=== PATIENT | male | born 1985 | race Caucasian/White ===

== ENCOUNTER 2018-04-17 03:13 | Observation (INO) | payer BC, OTHER ==
[2018-04-17] MEDS ORDERED: Famotidine 20 MG/2 ML SDV IVPUSH ONE (03:34)
--- NOTE | 2018-04-17 03:34 | EDM.PDOC ---
ED HPI GENERAL MEDICAL PROBLEM - General Chief Complaint: General Stated Complaint: dizzyness,faint Time Seen by Provider: 04/17/18 03:30 Source of Information: Reports: Patient, Old Records ([facility] EMR. No paper hospital chart available.) History Limitations: Reports: No Limitations - History of Present Illness INITIAL COMMENTS - FREE TEXT/NARRATIVE: The patient was brought to the emergency room via transport vehicle from [facility] for evaluation of multiple neurological complaints. Note that the patient is a poor historian secondary to his current confusion and mental status. 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 He only performed about a third of his normal workout since beginning the shift this evening. He apparently last appeared normal at time of his break at about 01:00 hours this morning. An EMT, which works in their facility, was called to evaluate the patient had about 02:30 a.m. with normal vital signs at that time, including a blood pressure 133/79 pulse 64 and O2 sat of 96% on room air. Accu-Chek taken by the EMT was normal at 104 milligram percent. The patient at that time complained of diffuse paresthesias without hyperventilation with additional nausea and dizziness, which apparently started at about 01:00 hours, with additional possible mild slurred speech by his brineyard supervisor's history. No history of recent headaches, visual changes, diplopia, or other change in neurological status. The patient denies any chest pain/ pressure, heart flutter, orthostasis, orthopnea, diaphoresis, paresthesias, recent decreased exercise tolerance, or any other anginal-type symptoms. Patient apparently did have some possible food poisoning about 2 weeks ago. No recent history of heartburn, emesis, diarrhea, melena, gross hematochezia, or any food intolerance, including fatty foods, etc., although he has had some nonspecific abdominal cramping this evening feeling that he needs to have a bowel movement. He denies any gross hematuria, colic, or other UTI symptoms. The patient also denies any recent fever, cough, wheezing, dyspnea, etc.. Shortly after arrival to the emergency room the patient did complain of a 4/10 bilateral frontal headache with some progressive nausea but no emesis. He did run out of his Zoloft about 3 days ago, however has been taking his Wellbutrin. He denies any illicit drug use with last alcohol use of 3 beers at 3 AM on 04/16. Onset: Today, Unknown/Unsure Onset Date: 04/17/18 Onset Time: 01:00 Duration: Constant Location: Reports: Head. Denies: Face, Neck, Chest, Abdomen, Back, Upper Extremity, Left, Upper Extremity, Right, Radiates to Quality: Reports: Same as Previous Episode, Throbbing Severity: Mild Improves with: Reports: None Worsens with: Reports: None Context: Reports: Other (As above) Associated Symptoms: Reports: Confusion, Headaches, Malaise, Nausea/Vomiting. Denies: Chest Pain, Cough, Diaphoresis, Fever/Chills, Loss of Appetite, Seizure , Shortness of Breath, Syncope, Weakness Treatments FRINGE WEAVER: Reports: Other (see below) (None) headache Pain Score (Numeric/FACES): 4 - Related Data Allergies Allergy/AdvReac Type Severity Reaction Status Date / Time No Known Allergies Allergy Verified 04/17/18 03:19 Home Meds: Home Meds Sertraline HCl 100 mg PO DAILY 12/23/16 [History] buPROPion [buPROPion XL] 150 mg PO DAILY 12/23/16 [History] Fluticasone Propionate [Flonase] 1 spray INH DAILY 04/17/18 [History] Past Medical History HEENT History: Reports: Allergic Rhinitis, Impaired Vision, Other (See Below). Denies: Cataract, Glaucoma, Hard of Hearing, Macular Degeneration, Retinal Detachment Other HEENT History: Patient wears glasses Cardiovascular History: Reports: None. Denies: Afib, Aneurysm, Arrhythmia, Blood Clots/VTE/DVT, CAD, High Cholesterol, Hypertension, WV, Syncope Respiratory History: Reports: None. Denies: Asthma, COPD, Intubation, Difficult , Intubation, Previous, PE, Pneumothorax, Sleep Apnea Gastrointestinal History: Reports: Chronic Constipation, Chronic Diarrhea, Hiatal Hernia. Denies: Celiac Disease, Cholelithiasis, Gastritis, GI Bleed, Hepatitis, Inflammatory Bowel Disease, Irritable Bowel Syndrome, Jaundice, Pancreatitis, PUD Genitourinary History: Reports: None. Denies: Acute Renal Failure, BPH, Chronic Renal Insuffiency, Renal Calculus, STD, UTI, Recurrent Musculoskeletal History: Reports: Arthritis, Back Pain, Chronic, Neck Pain, Chronic, Osteoarthritis. Denies: Fracture, Gout, RA, SLE Neurological History: Reports: Headaches, Chronic. Denies: Cerebral Aneurysms, Concussion, CVA, Head Trauma, Migraines, MS, Neuropathy, Peripheral, Parkinson's , Seizure, TIA Psychiatric History: Reports: ADD, ADHD, Anxiety, Depression. Denies: Abuse, Victim of, Addiction, Psych Hospitalization(s), PTSD, Suicide Attempt, Suicidal Ideation Endocrine/Metabolic History: Reports: Obesity/BMI 30+. Denies: Diabetes, Type I , Diabetes, Type II, Hypothyroidism, IDDM Hematologic History: Reports: None. Denies: Anemia, Blood Transfusion(s), Iron Deficiency Immunologic History: Reports: None. Denies: AIDS, HIV, SLE Oncologic (Cancer) History: Reports: None. Denies: Basal Cell Carcinoma, Hodgkin's Lymphoma, Leukemia, Lymphoma, Malignant Melanoma, Non-Hodgkin's Lymphoma, Squamous Cell Carcinoma Dermatologic History: Reports: None. Denies: Eczema, Psoriasis - Infectious Disease History Infectious Disease History: Reports: Chicken Pox. Denies: C-Difficile, Measles , Meningitis, Mononucleosis, MRSA, Mumps, Pertussis (Whooping Cough), Rheumatic Fever, Rubella, Scarlet Fever, Shingles, TB, VRE - Past Surgical History Head Surgeries/Procedures: Reports: None HEENT Surgical History: Reports: Oral Surgery, Other (See Below). Denies: Adenoidectomy, Eye Surgery, Myringotomy w Tube(s), Naso-Sinus Surgery, Tonsillectomy Other HEENT Surgeries/Procedures: Teeth extractions Cardiovascular Surgical History: Reports: None. Denies: Varicose Respiratory Surgical History: Reports: None. Denies: Thoracentesis GI Surgical History: Reports: Appendectomy, Other (See Below). Denies: Cholecystectomy, Colonoscopy, EGD, Hernia, Abdominal, Hernia, Inguinal, Hernia Repair/Other Other GI Surgeries/Procedures: Appendectomy in about 2010 Male Surgical History: Reports: Circumcision, Vasectomy Other Male Surgeries/Procedures: Circumcision an . Vasectomy in about 2012 Endocrine Surgical History: Reports: None Neurological Surgical History: Reports: None. Denies: C-Spine, Discectomy, Laminectomy, Lumbar Spine, Sacral Spine, Spinal Fusion, Thoracic Spine, Vertebroplasty Musculoskeletal Surgical History: Reports: None. Denies: Arthroscopic Procedure , Carpal Tunnel, Ganglion Cyst, Joint Replacement, ORIF, Shoulder Surgery Oncologic Surgical History: Reports: None Dermatological Surgical History: Reports: None - Past Imaging History Past Imaging History: Reports: CAT Scan (CT scan of the abdomen and pelvis on ), MRI (MRI of the lumbar spine on 04/03/17) Social & Family History - Family History HEENT: Reports: None. Denies: Glaucoma, Macular Degeneration, Retinal Detachment Cardiac: Reports: CAD, Heart Failure, Other (See Below). Denies: Afib, Aneurysm , Arrhythmia, Blood Clots/VTE/DVT, WV Other Cardiac Family History: Maternal great grandfather with fatal CHF at age 100 Respiratory: Reports: Sleep Apnea, Other (See Below). Denies: Asthma, COPD, PE , Pneumothorax Other Respiratory Family Hisory: Maternal grandmother with sleep apnea GI: Reports: Other (See Below). Denies: Celiac Disease, Cholelithiasis, Colon Polyps, GERD, GI bleed, Inflammatory Bowel Disease, Irritable Bowel Syndrome, PUD Other GI Family History: Maternal grandmother and great grandmother with unknown type of digestive disorders : Reports: None. Denies: Renal Calculus, Renal Disease/Insufficiency OBGYN: Reports: None. Denies: Endometriosis, Recurrent Spontaneous Musculoskeletal: Reports: None. Denies: Gout, RA, SLE Neurological: Reports: Alzheimers Disease. Denies: Cerebral Aneurysms, CVA, Dementia, Migraines, MS, Parkinson's, Seizure, TIA Other Neurological Family History: Paternal grandfather and his 7 siblings with Alzheimer's Psychiatric: Reports: ADD, Other (See Below). Denies: Abuse, Victim of, ADHD, Anxiety, Depression, Psych Hospitalization(s), PTSD, Suicide Attempt Other Psychiatric Family History: Son with ADHD Endocrine/Metabolic: Reports: Hypothyroidism, Other (See Below). Denies: Diabetes, Type I, Diabetes, type II, Diabetes Mellitus, Type 3c, IDDM Other Endocrine/Metabolic Family History: Hypothyroidism in sister, paternal grandparents, father and 2 paternal aunts Hematologic: Reports: None. Denies: Anemia, SLE Immunologic: Reports: None. Denies: AIDS, HIV, SLE Dermatologic: Reports: None. Denies: Eczema, Psoriasis Oncologic: Reports: Colon, Other (See Below). Denies: Hodgkin's Lymphoma, Leukemia, Non-Hodgkin's Lymphoma, Prostate, Skin Other Oncologic Family History: Paternal grandfather with cancer of unknown type , possibly colon cancer fatal in his 70s - Tobacco Use Smoking Status *Q: Current Every Day Smoker Tobacco Use Within Last Twelve Months: Cigarettes Years of Tobacco use: 13 Packs/Tins Daily: 0.3 Packs/Tins Daily Comment: He started smoking at age 9 with maximum use of one pack per day Used Tobacco, but Quit: Yes Month/Year Tobacco Last Used: No use for 1 week Smoking Cessation Information Provided To Patient: Yes Second Hand Smoke Exposure: No Second Hand Smoke Education Provided: No - Caffeine Use Caffeine Use: Reports: Soda (6 20 ounce bottles and about 8 cans of Mountain Dew daily), Tea (2 glasses per day). Denies: Coffee, Energy Drinks - Alcohol Use Alcohol Use History: Yes Days Per Week of Alcohol Use: 3 Number of Drinks Per Day: 4 Number of Drinks Per Day Comment: Usually beer. No previous DWIs, problems with alcohol abuse, etc. Total Drinks Per Week: 12 Date of Last Drink: 04/16/18 Time of Last Drink: 03:00 Alcohol Use in Last Twelve Months: Yes Alcohol Use Frequency: Socially - Recreational Drug Use Recreational Drug Use: No Drug Use in Last 12 Months: No Recreational Drug Type: Denies: Amphetamines (Speed), Cocaine, Heroin, Inhalants (Glues, Solvents, Aerosols), LSD (Acid), Marijuana/Hashish, Methamphetamine, Morphine, Oxycodone - Living Situation & Occupation Living situation: Reports: (2004, 2 children), with Family Occupation: Employed ([employer]) ED ROS GENERAL - Review of Systems Review Of Systems: ROS reveals no pertinent complaints other than HPI. ED EXAM, GENERAL - Physical Exam Exam: See Below Exam Limited By: No Limitations General Appearance: No Apparent Distress, Anxious (Mild), Lethargic Eye Exam: Bilateral Eye: EOMI, Normal Fundi, Normal Inspection (No nystagmus), PERRL Ears: Normal External Exam, Normal Canal, Hearing Grossly Normal, Normal TMs Throat/Mouth: Normal Inspection, Normal Lips, Normal Teeth, Normal Gums, Normal Oropharynx, Normal Voice, No Airway Compromise. No: Dysphagia, Perioral Cyanosis Head: Atraumatic, Normocephalic. No: Facial Swelling, Facial Tenderness, Sinus Tenderness Neck: Normal Inspection, Supple, Non-Tender, Full Range of Motion. No: Carotid Bruit, Lymphadenopathy (L), Lymphadenopathy (R), Thyromegaly Respiratory/Chest: No Respiratory Distress, Lungs Clear, Normal Breath Sounds, No Accessory Muscle Use, Chest Non-Tender. No: Pleural Rub, Retractions Cardiovascular: Normal Peripheral Pulses, Regular Rate, Rhythm, No Edema, No Gallop, No JVD, No Murmur, No Rub. No: Gallop/S3, Gallop/S4, Friction Rub Peripheral Pulses: 2+: Radial (L), Radial (R), Dorsalis Pedis (L), Dorsalis Pedis (R) GI/Abdominal: Normal Bowel Sounds, Soft, Non-Tender, No Organomegaly, No Distention, No Abnormal Bruit, No Mass, Pelvis Stable, Other (Obese). No: Guarding (Male) Exam: Deferred Rectal (Males) Exam: Deferred Back Exam: Normal Inspection, Full Range of Motion. No: CVA Tenderness (L), CVA Tenderness (R), Muscle Spasm Extremities: Normal Inspection, Normal Range of Motion, Non-Tender, No Pedal Edema, Normal Capillary Refill. No: Jenn's Sign Neurological: Alert, Oriented, CN II-XII Intact, Normal Cognition, Normal Gait, Normal Reflexes (Negative Babinski's, finger to nose, and pronator rotation tests. No evidence of facial paresis, tongue deviation, orthostasis, etc.. Excellent reverse thought processes.), No Motor/Sensory Deficits, Other ( Negative meningeal signs) Psychiatric: Anxious (Mild), Depressed Mood (Mild) Skin Exam: Warm, Dry, Intact, Normal Color, No Rash. No: Diaphoretic, Ecchymosis, Pallor, Petechiae, Tattoo(s), Wound/Incision Lymphatic: No Adenopathy EKG INTERPRETATION EKG Date: 04/17/18 Time: 03:57 Rhythm: NSR Rate (Beats/Min): 91 Hopkins: Normal (Neutral) P-Wave: Present (Mild diffuse biphasic P waves and poor R-wave progression in the anterior leads) QRS: Wide (QRS interval 0.10 seconds representing mild repolarization changes) ST-T: Normal QT: Normal WA/PQ Interval: 0.18 seconds Comparison: NA - No Prior EKG EKG Interpretation Comments: No acute ischemic changes Course - Vital Signs Last Recorded V/S: Last Vital Signs Temp 36.9 C 04/17/18 05:14 Pulse 82 04/17/18 05:14 Resp 16 04/17/18 05:14 BP 141/75 H 04/17/18 05:14 Pulse Ox 98 04/17/18 05:14 Orthostatic Blood Pressure [ 127/79 Standing] Orthostatic Blood Pressure [ 133/81 Sitting] Orthostatic Blood Pressure [ 135/72 Supine] See Stroke Code Sheet Vital Signs - 24 hr 04/17/18 04/17/18 04/17/18 03:15 03:21 03:30 Temperature [ 37.3 C Temporal] Pulse, 96 97 95 Peripheral [ Left Pulse Oximetry] Respiratory 15 21 H 16 Rate Blood Pressure 135/77 135/77 134/76 [Left Upper Arm ] O2 Sat by Pulse 97 95 96 Oximetry 04/17/18 04/17/18 04/17/18 03:55 04:15 04:25 Temperature [ Temporal] Pulse, 93 91 87 Peripheral [ Left Pulse Oximetry] Respiratory 19 17 17 Rate Blood Pressure 149/82 H 127/79 134/67 [Left Upper Arm ] O2 Sat by Pulse 96 99 97 Oximetry Orthostatic Blood Pressure [ 127/79 Standing] Orthostatic Blood Pressure [ 133/81 Sitting] Orthostatic Blood Pressure [ 135/72 Supine] - Orders/Labs/Meds Orders: Active Orders 24 hr Category Date Time Status Blood Glucose Check, Bedside [RC] STAT Care 04/17/18 03:15 Active Cardiac Monitoring [RC] STAT Care 04/17/18 03:34 Active EKG Documentation Completion [RC] ASDIRECTED Care 04/17/18 03:34 Active NIH Stroke Scale [RC] ASDIRECTED Care 04/17/18 03:34 Active Peripheral IV Care [RC] . DIRECTED Care 04/17/18 03:34 Active Pulse Oximetry [RC] CONTINUOUS Care 04/17/18 03:34 Active Up With Assistance [RC] ASDIRECTED Care 04/17/18 03:34 Active Vital Signs [RC] PFP Care 04/17/18 03:34 Active Nothing per Oral Now Diet [DIET] Diet 04/17/18 Breakfast Active Chest 1V Frontal [CR] Stat Exams 04/17/18 03:34 Ordered Head wo Cont [CT] Stat Exams 04/17/18 03:34 Ordered CULTURE BLOOD [BC] Stat Lab 04/17/18 04:36 Ordered CULTURE BLOOD [BC] Stat Lab 04/17/18 04:36 Ordered CULTURE URINE [RM] Routine Lab 04/17/18 03:37 Ordered DRUG SCREEN, URINE [URCHEM] Stat Lab 04/17/18 03:37 Ordered PROLACTIN [REF] Stat Lab 04/17/18 03:34 Ordered UA W/MICROSCOPIC [URIN] Stat Lab 04/17/18 03:34 Ordered Sodium Chloride 0.9% [Saline Flush] Med 04/17/18 03:34 Active 10 ml FLUSH ASDIRECTED PRN Blood Culture x2 Reflex Set [OM.PC] Urgent Oth 04/17/18 04:36 Ordered Obtain Past Medical Record [OM.PC] Stat Oth 04/17/18 03:34 Active Peripheral IV Insertion Adult [OM.PC] Stat Oth 04/17/18 03:34 Ordered Resuscitation Status Stat Resus Stat 04/17/18 03:34 Ordered EKG 12 Lead [EK] Stat Ther 04/17/18 03:34 Ordered Medication Orders Sodium Chloride (Saline Flush) 10 ml FLUSH ASDIRECTED PRN PRN Reason: Keep Vein Open Labs: Laboratory Tests 04/17/18 04/17/18 04/17/18 Range/Units 03:35 03:35 03:35 WBC 14.7 H (4.0-10.2) K/uL RBC 4.82 (4.33-5.41) M/uL Hgb 15.5 (13.1-16.8) g/dL Hct 44.0 (39.0-49.0) % MCV 91.3 (84.0-98.0) fL MCH 32.2 (28.2-33.3) pg MCHC 35.2 (31.7-36.0) g/dL RDW 12.4 (11.2-14.1) % Plt Count 228 (150-350) K/uL Neut % (Auto) 80.2 H (45.0-80.0) % Lymph % (Auto) 9.3 L (10.0-50.0) % Bennett % (Auto) 8.2 (2.0-14.0) % Eos % (Auto) 2.1 (0.0-5.0) % Baso % (Auto) 0.2 (0.0-2.0) % Neut # (Auto) 11.75 H (1.40-7.00) K/uL Lymph # (Auto) 1.37 (0.50-3.50) K/uL Bennett # (Auto) 1.21 H (0.00-1.00) K/uL Eos # (Auto) 0.31 (0.00-0.50) K/uL Baso # (Auto) 0.03 (0.00-0.20) K/uL PT 10.7 (9.8-11.7) SEC INR 1.0 APTT 26.4 (22.1-29.8) SEC D-Dimer, Quantitative 153 (0-400) ng/mL Sodium (136-145) mmol/L Potassium (3.5-5.1) mmol/L Chloride (98-107) mmol/L Carbon Dioxide (21.0-32.0) mmol/L BUN (7-18) mg/dL Creatinine (0.51-1.17) mg/dL Est Cr Clr Drug Dosing mL/min Estimated GFR (MDRD) mL/min Glucose (74-106) mg/dL Lactic Acid (0.4-2.0) mmol/L Uric Acid (2.6-7.2) mg/dL Calcium (8.5-10.1) mg/dL Magnesium (1.8-2.4) mg/dL Total Bilirubin (0.2-1.0) mg/dL AST (15-37) U/L ALT (12-78) U/L Alkaline Phosphatase (46-116) IU/L Creatine Kinase (26-308) U/L Creatine Kinase Index (0.0-2.5) % CK-MB (CK-2) (0.00-3.60) ng/mL Troponin I (0.000-0.056) ng/mL NT-Pro-B Natriuret Pep (0-125) pg/mL Total Protein (6.4-8.2) g/dL Albumin (3.4-5.0) g/dL TSH, Ultra Sensitive (0.358-3.740) mIU/mL Ethyl Alcohol (0.000-0.080) g/dL 05/29/18 05/29/18 Range/Units 03:35 03:35 WBC (4.0-10.2) K/uL RBC (4.33-5.41) M/uL Hgb (13.1-16.8) g/dL Hct (39.0-49.0) % MCV (84.0-98.0) fL MCH (28.2-33.3) pg MCHC (31.7-36.0) g/dL RDW (11.2-14.1) % Plt Count (150-350) K/uL Neut % (Auto) (45.0-80.0) % Lymph % (Auto) (10.0-50.0) % Bennett % (Auto) (2.0-14.0) % Eos % (Auto) (0.0-5.0) % Baso % (Auto) (0.0-2.0) % Neut # (Auto) (1.40-7.00) K/uL Lymph # (Auto) (0.50-3.50) K/uL Bennett # (Auto) (0.00-1.00) K/uL Eos # (Auto) (0.00-0.50) K/uL Baso # (Auto) (0.00-0.20) K/uL PT (9.8-11.7) SEC INR APTT (22.1-29.8) SEC D-Dimer, Quantitative (0-400) ng/mL Sodium 139 (136-145) mmol/L Potassium 3.5 (3.5-5.1) mmol/L Chloride 101 (98-107) mmol/L Carbon Dioxide 24.9 (21.0-32.0) mmol/L BUN 11 (7-18) mg/dL Creatinine 1.00 (0.51-1.17) mg/dL Est Cr Clr Drug Dosing 110.86 mL/min Estimated GFR (MDRD) > 60 mL/min Glucose 105 (74-106) mg/dL Lactic Acid 2.0 (0.4-2.0) mmol/L Uric Acid 6.0 (2.6-7.2) mg/dL Calcium 8.7 (8.5-10.1) mg/dL Magnesium 1.7 L (1.8-2.4) mg/dL Total Bilirubin 0.5 (0.2-1.0) mg/dL AST 25 (15-37) U/L ALT 67 (12-78) U/L Alkaline Phosphatase 84 (46-116) IU/L Creatine Kinase 77 (26-308) U/L Creatine Kinase Index 1.3 (0.0-2.5) % CK-MB (CK-2) 1.00 (0.00-3.60) ng/mL Troponin I 0.000 (0.000-0.056) ng/mL NT-Pro-B Natriuret Pep 8 (0-125) pg/mL Total Protein 7.8 (6.4-8.2) g/dL Albumin 4.2 (3.4-5.0) g/dL TSH, Ultra Sensitive 1.123 (0.358-3.740) mIU/mL Ethyl Alcohol 0.000 (0.000-0.080) g/dL Blood cultures 2 collected Meds: Medications Generic Name Dose Route Start Last Admin Trade Name Freq PRN Reason Stop Dose Admin Sodium Chloride 10 ml 04/17/18 03:34 Saline Flush FLUSH ASDIRECTED PRN Keep Vein Open Discontinued Medications Generic Name Dose Route Start Last Admin Trade Name Freq PRN Reason Stop Dose Admin Famotidine 40 mg 04/17/18 03:34 04/17/18 03:49 Pepcid IVPUSH 04/17/18 03:35 40 mg ONETIME ONE Administration Lactated Ringer's 1,000 mls @ 999 mls/hr 04/17/18 04:05 04/17/18 04:08 Ringers, Lactated IV 04/17/18 05:05 999 mls/hr .BOLUS ONE Administration Ondansetron HCl 4 mg 04/17/18 03:42 04/17/18 03:50 Zofran IVPUSH 04/17/18 03:43 4 mg ONETIME ONE Administration - Radiology Interpretation Free Text/Narrative:: surveillance system monitor shows normal sinus rhythm with heart rates in the 80s with occasional boardlike tachycardia in [id number] while standing with no ectopy or arrhythmia Chest x-ray, portable, shows a somewhat poor inspiratory film with possible mild COPD changes. No cardiomegaly, pneumothorax, pulmonary infiltrates, CHF, etc. Telephone consultation at 04:03 hours with the radiology department at [facility] with verbal report of CT scan of the head without contrast. No acute changes, including evidence of CVA, intracerebral hemorrhages, etc. CT Results Date: 04/17/18 CT Results Time: 04:03 Departure - Departure Time of Disposition: 05:20 Disposition: Refer to Observation Condition: Good Clinical Impression: Confusion, Mixed anxiety depressive disorder, Peptic reflux disease, Hypomagnesemia, Tobacco abuse counseling, Osteoarthritis - Discharge Information - Problem List & Annotations (1) Confusion SNOMED Code(s): 650885711 Code(s): R41.0 - DISORIENTATION, UNSPECIFIED Status: Acute Priority: High Current Visit: Yes Onset Date: 04/17/18 Annotation/Comment:: Stroke code called by this provider upon patient's arrival to the emergency room. Telephone consultation at 04:[address] Neal, neurologist at [facility], who refuses my request to transfer the patient to their facility for my recommended/requested MRI of the head. Various therapeutic options were discussed with the patient and during telephone consultation with his , Adamaris, at 04:40, including contacting [facility] for requested MRI and transfer versus hospitalization in this facility with neurological checks and MRI on an outpatient basis. Both parties are requesting hospitalization in this facility. The neurologist felt that the patient was having a migraine equivalent and did not feel an emergent MRI was necessary. MRI on an outpatient basis will be conducted HEMANT as above. Neurological checks with vitals. Urine specimen could not be obtained during emergency room care with this to be contacted shortly after admission. Note some leukocytosis possibly secondary to stress reaction with IV Rocephin as prophylaxis after blood cultures were obtained in the emergency room. Neurological checks with vitals. (2) Hypomagnesemia SNOMED Code(s): 546603793 Code(s): E83.42 - HYPOMAGNESEMIA Status: Acute Priority: Medium Current Visit: Yes Onset Date: 04/17/18 Annotation/Comment:: Initiate magnesium oxide, which may also be beneficial for his headache (3) Mixed anxiety depressive disorder SNOMED Code(s): 909501612 Code(s): F41.8 - OTHER SPECIFIED ANXIETY DISORDERS Status: Chronic Priority: High Current Visit: Yes Annotation/Comment:: Per patient and his he has been having significant stressors, including financial problems, marital problems, etc., with previous apparent suicidal ideation without plan about one week ago. He denies any suicidal ideation at this time, however. Note some medication noncompliance as above with reinitiation of Zoloft therapy. Emotional support provided. Consider counseling depending on his clinical course. Close follow-up by his regular provider. Note additional history of ADHD with patient advised to decrease his significant caffeine intake at this time. (4) Peptic reflux disease SNOMED Code(s): 482648360 Code(s): K21.9 - GASTRO-ESOPHAGEAL REFLUX DISEASE WITHOUT ESOPHAGITIS Status: Chronic Priority: Medium Current Visit: Yes Annotation/Comment:: Stable by history despite nonspecific abdominal discomfort earlier this morning. High-dose IV Pepcid given as GI prophylaxis. Observe for now. IV Zofran also given for his nausea and overall good results. Additional 1 L of lactated Ringer's given IV secondary to his nonspecific dizziness with negative orthostatic blood pressures in the emergency room (5) Tobacco abuse counseling SNOMED Code(s): 699486037, 895308188, 319255194 Code(s): Z71.6 - TOBACCO ABUSE COUNSELING Status: Chronic Priority: Medium Current Visit: Yes Annotation/Comment:: Tobacco cessation strongly encouraged with information to be provided at discharge (6) Osteoarthritis SNOMED Code(s): 367207682 Code(s): M19.90 - UNSPECIFIED OSTEOARTHRITIS, UNSPECIFIED SITE Status: Chronic Priority: Medium Current Visit: Yes Annotation/Comment:: Stable by history Qualifiers: Osteoarthritis location: multiple joints Osteoarthritis type: primary Qualified Code(s): M15.0 - Primary generalized (osteo)arthritis - Problem List Review Problem List Initiated/Reviewed/Updated: Yes - My Orders Last 24 Hours: My Active Orders 04/17/18 03:15 Blood Glucose Check, Bedside [RC] STAT 04/17/18 03:34 Cardiac Monitoring [RC] STAT EKG Documentation Completion [RC] ASDIRECTED NIH Stroke Scale [RC] ASDIRECTED Peripheral IV Care [RC] . DIRECTED Pulse Oximetry [RC] CONTINUOUS Up With Assistance [RC] ASDIRECTED Vital Signs [RC] PFP Chest 1V Frontal [CR] Stat Head wo Cont [CT] Stat PROLACTIN [REF] Stat UA W/MICROSCOPIC [URIN] Stat Sodium Chloride 0.9% [Saline Flush] 10 ml FLUSH ASDIRECTED PRN Obtain Past Medical Record [OM.PC] Stat Peripheral IV Insertion Adult [OM.PC] Stat Resuscitation Status Stat EKG 12 Lead [EK] Stat 04/17/18 03:37 CULTURE URINE [RM] Routine DRUG SCREEN, URINE [URCHEM] Stat 04/17/18 04:36 CULTURE BLOOD [BC] Stat CULTURE BLOOD [BC] Stat Blood Culture x2 Reflex Set [OM.PC] Urgent 04/17/18 Breakfast Nothing per Oral Now Diet [DIET] - Assessment/Plan Admission H&P: Please use this note as an admission H&P Last 24 Hours: My Active Orders 04/17/18 03:15 Blood Glucose Check, Bedside [RC] STAT 04/17/18 03:34 Cardiac Monitoring [RC] STAT EKG Documentation Completion [RC] ASDIRECTED NIH Stroke Scale [RC] ASDIRECTED Peripheral IV Care [RC] . DIRECTED Pulse Oximetry [RC] CONTINUOUS Up With Assistance [RC] ASDIRECTED Vital Signs [RC] PFP Chest 1V Frontal [CR] Stat Head wo Cont [CT] Stat PROLACTIN [REF] Stat UA W/MICROSCOPIC [URIN] Stat Sodium Chloride 0.9% [Saline Flush] 10 ml FLUSH ASDIRECTED PRN Obtain Past Medical Record [OM.PC] Stat Peripheral IV Insertion Adult [OM.PC] Stat Resuscitation Status Stat EKG 12 Lead [EK] Stat 04/17/18 03:37 CULTURE URINE [RM] Routine DRUG SCREEN, URINE [URCHEM] Stat 04/17/18 04:36 CULTURE BLOOD [BC] Stat CULTURE BLOOD [BC] Stat Blood Culture x2 Reflex Set [OM.PC] Urgent 04/17/18 Breakfast Nothing per Oral Now Diet [DIET] Assessment:: As above Plan: As above. Extensive precautions were given to the patient and his , who are in agreement with the treatment plan. The patient's condition is stable enough for observation status and general supervision.
[2018-04-17] MEDS ORDERED: Ondansetron 4 MG/2 ML SDV IVPUSH ONE (03:42)
[2018-04-17] MEDS ORDERED: Lactated Ringers 1,000 ML IV ONE (04:05)
[2018-04-17 04:14] LABS: CHLORIDE,CL 101 mmol/L (98-107); SODIUM,NA 139 mmol/L (136-145)
[2018-04-17] MEDS ORDERED: Sodium Chloride 0.9% 10 ML Syringe FLUSH PRN (05:28)
[2018-04-17] MEDS ORDERED: Ondansetron 4 MG/2 ML SDV IVPUSH PRN (05:28)
[2018-04-17] MEDS: cefTRIAXone 1 GM in Sodium Chloride 0.9% 100 ML IV SCH ×2 (06:40→17:15)
[2018-04-17] MEDS: Sodium Chloride 0.9% 10 ML Syringe FLUSH PRN (06:41)
[2018-04-17] MEDS: Fluticasone Propionate Nasal Spray 16 GM Bottle NASBOTH SCH (07:26)
[2018-04-17] MEDS: Magnesium Oxide 400 MG Tab PO SCH (07:26)
[2018-04-17] MEDS: buPROPion 150 MG Tab.ER PO SCH (07:26)
[2018-04-17] MEDS: Sertraline 50 MG Tab PO SCH (07:26)
[2018-04-17] MEDS: Acetaminophen 325 MG Tab PO PRN (07:31)
[2018-04-17] MEDS ORDERED: Temazepam 15 MG Cap PO PRN (20:00)
[2018-04-18] MEDS: cefTRIAXone 1 GM in Sodium Chloride 0.9% 100 ML IV SCH (04:10)
[2018-04-18] MEDS: Sodium Chloride 0.9% 10 ML Syringe FLUSH PRN ×2 (04:10→10:12)
[2018-04-18] MEDS: Fluticasone Propionate Nasal Spray 16 GM Bottle NASBOTH SCH (07:11)
[2018-04-18] MEDS: buPROPion 150 MG Tab.ER PO SCH (07:12)
[2018-04-18] MEDS: Magnesium Oxide 400 MG Tab PO SCH (07:12)
[2018-04-18] MEDS: Sertraline 50 MG Tab PO SCH (07:12)
[2018-04-18] MEDS: Acetaminophen 325 MG Tab PO PRN (07:13)
[2018-04-18 07:14] VITALS: BP 124/70
[2018-04-18] MEDS ORDERED: Meclizine 25 MG Tab PO PRN (09:00)
[2018-04-18 09:02] LABS: CHLORIDE,CL 103 mmol/L (98-107); SODIUM,NA 140 mmol/L (136-145)
[2018-04-18] MEDS ORDERED: methylPREDNISolone Sodium Succinate 125 MG/2 ML SDV IVPUSH ONE (09:14)
--- NOTE | 2018-04-18 09:22 | PCM.DCSUM1 ---
Discharge Summary - Hospital Course HPI Initial Comments: See emergency room note/admission H&P Brief History: See emergency room note/admission H&P - Discharge Data Discharge Date: 04/18/18 Discharge Disposition: Home, Self-Care 01 Condition: Good - Discharge Diagnosis/Problem(s) (1) Confusion SNOMED Code(s): 627627857 ICD Code: R41.0 - DISORIENTATION, UNSPECIFIED Status: Acute Priority: High Current Visit: Yes Onset Date: 04/17/18 Problem Details: Neurological checks during this hospitalization have been stable including during my physical exam today. Previous nonspecific confusion has completely resolved and was possibly secondary to some sleep deprivation from his night shifts, family problems, etc. Secondary to recent holiday MRI of the head cannot be conducted is facility until next week. Various therapeutic options were discussed with the patient, who will discuss this further with his regular provider at follow-up visit as per discharge instructions. [employer] work excuse provided with no driving, strict fall, injury precautions, etc. until released by his regular provider. Note that a Stroke code called by this provider upon patient's arrival to the emergency room. Telephone consultation at 04:[address] Neal, neurologist at [facility] in [place], who refuses my request to transfer the patient to their facility for my recommended/ requested MRI of the head. Various therapeutic options were discussed with the patient and during telephone consultation with his , Adamaris, at 04:40, including contacting [facility] for requested MRI and transfer versus hospitalization in this facility with neurological checks and MRI on an outpatient basis. Both parties are requesting hospitalization in this facility. The neurologist felt that the patient was having a migraine equivalent and did not feel an emergent MRI was necessary. MRI on an outpatient basis will be conducted [facility] as above. Urine specimen showed no evidence of acute infection despite some leukocytosis on admission with negative urine drug screen and alcohol levels. Initial leukocytosis possibly secondary to stress reaction with IV Rocephin as prophylaxis after blood cultures were obtained in the emergency room. The patient is mildly febrile this morning but no evidence of acute infection. Note probable viral labyrinthitis as below. No further antibiotic therapy for now. Note newly diagnosed folic acid deficiency with initiation of therapy at discharge. Prolactin level was normal. No evidence of known seizure activity prior to discharge or during this hospitalization. (2) Hypomagnesemia SNOMED Code(s): 707778291 ICD Code: E83.42 - HYPOMAGNESEMIA Status: Acute Priority: Medium Current Visit: Yes Onset Date: 04/17/18 Problem Details: Initiated magnesium oxide, which may also be beneficial for his headaches, with repeat magnesium level at follow-up as per discharge instructions. (3) Mixed anxiety depressive disorder SNOMED Code(s): 292240847 ICD Code: F41.8 - OTHER SPECIFIED ANXIETY DISORDERS Status: Chronic Priority: High Current Visit: Yes Problem Details: Patient's emotional status has improved with reinitiation of his Zoloft. Medication compliance strongly encouraged. Per patient and his he has been having significant stressors, including financial problems, marital problems, etc., with previous apparent suicidal ideation without plan about one week ago. He denies any suicidal ideation at this time, however. Note some medication noncompliance prior to admission as per emergency room note. Emotional support provided. Consider counseling depending on his clinical course. Close follow-up by his regular provider. Note additional history of ADHD with patient advised to decrease his significant caffeine intake at this time. (4) Peptic reflux disease SNOMED Code(s): 546360132 ICD Code: K21.9 - GASTRO-ESOPHAGEAL REFLUX DISEASE WITHOUT ESOPHAGITIS Status: Chronic Priority: Medium Current Visit: Yes Problem Details: No abdominal complaints at this time. Stable by history despite nonspecific abdominal discomfort earlier in the morning prior to admission. High-dose IV Pepcid given as GI prophylaxis in the emergency room. IV Zofran also given for his nausea with overall good results. Additional 1 L of lactated Ringer's given IVB in the emergency room secondary to his nonspecific dizziness with negative orthostatic blood pressures at time of admission. (5) Tobacco abuse counseling SNOMED Code(s): 528109200, 168318288, 180871111 ICD Code: Z71.6 - TOBACCO ABUSE COUNSELING Status: Chronic Priority: Medium Current Visit: Yes Problem Details: Tobacco cessation strongly encouraged with information to be provided at discharge (6) Osteoarthritis SNOMED Code(s): 637485805 ICD Code: M19.90 - UNSPECIFIED OSTEOARTHRITIS, UNSPECIFIED SITE Status: Chronic Priority: Medium Current Visit: Yes Problem Details: Stable by history Qualifiers: Osteoarthritis location: multiple joints Osteoarthritis type: primary Qualified Code(s): M15.0 - Primary generalized (osteo)arthritis (7) Labyrinthitis SNOMED Code(s): 07442395 ICD Code: H83.09 - LABYRINTHITIS, UNSPECIFIED EAR Status: Acute Priority : High Current Visit: Yes Onset Date: ~04/18/18 Problem Details: Mild vertigo and labyrinthitis without nystagmus this morning. Oral meclizine and IV Cipro Medrol given prior to discharge. Patient will not return to work secondary to these symptoms and his initial confusion prior to admission until discharged by his regular provider Qualifiers: Laterality: unspecified laterality Qualified Code(s): H83.09 - Labyrinthitis, unspecified ear (8) Folic acid deficiency SNOMED Code(s): 748021359 ICD Code: E53.8 - DEFICIENCY OF OTHER SPECIFIED B GROUP VITAMINS Status: Acute Priority: High Current Visit: Yes Onset Date: 04/18/18 Problem Details: Newly diagnosed. Initiate folic acid therapy. Close follow-up by regular provider. - Patient Summary/Data Operative Procedure(s) Performed: None Complications: None Consults: Neurologist at [facility] as per emergency room note Labs Pending at D/C: Blood cultures 2. Urine culture and sensitivity. Recommended Follow-up Testing/Procedures: As per discharge instructions Planned Operative Procedure(s) after DC: None Hospital Course: Patient was admitted to observation status on telemetry with neurological checks with vitals. Patient's confusion resolved prior to discharge, however he did develop some vertigo and probable viral labyrinthitis on day prior to discharge with treatment as above. Patient was given IV Rocephin as above with resolution of leukocytosis prior to discharge, although he was mildly febrile this morning. No significant infection noted as above. Close follow-up by regular provider further neurological consultation, MRI of the brain, etc. per his provider's discretion as per discharge instructions. - Patient Instructions Diet: Heart Healthy Diet Activity: As Tolerated Activity, Other: Strict fall and injury precautions as discussed Driving: Do Not Drive (Until released by regular provider) Showering/Bathing: May Shower Notify Provider of: Fever, Increased Pain, Nausea and/or Vomiting Other/Special Instructions: 1. Follow-up with your regular provider within the next 25 days for reevaluation and recommended repeat CBC and basic metabolic panel, and magnesium level. 2. Sedation precautions with meclizine as discussed. 3. Tylenol 650 mg by mouth every 4 hours and/or OTC ibuprofen 2-3 tabs by mouth every 6 hours with food as directed./needed. 4. Work excuse- See Form. 5. Discuss with your regular provider at follow-up visit your current stressors and recent suicidal ideation, etc. with consideration of additional counseling, medication adjustment, etc. 6. Also discuss with your regular provider possibile recommended MRI of the brain, EEG, and/or neurology referral. 7. Decrease caffeine intake as discussed. 8. Stop all tobacco use [facility]EM[facility] as directed/per provided information and consider contacting [employer], etc.. 9. Immediately after this visit verify that your cellular telephone's voicemail has been activated and is empty. Also verify that your home telephone 's answering machine is operating properly and has space to receive messages. Note that it is sometimes necessary for us to be able to contact you at a later date to discuss your medical care. 10. Medication compliance as discussed. 11. Recommend repeat CBC and folic acid level in 4 weeks - Discharge Plan Prescriptions/Med Rec: Folic Acid 1 mg PO DAILY #30 tab Magnesium Oxide 400 mg PO DAILY #30 tablet Meclizine [Antivert] 25 mg PO Q6H PRN #30 tablet PRN Reason: Dizziness Home Medications: Home Meds Sertraline HCl 150 mg PO DAILY 12/23/16 [History] buPROPion [buPROPion XL] 150 mg PO DAILY 12/23/16 [History] Fluticasone Propionate [Flonase] 1 spray INH DAILY 04/17/18 [History] Acetaminophen [Tylenol] 650 mg PO Q4H PRN tablet 04/18/18 [Rx] Folic Acid 1 mg PO DAILY #30 tab 04/18/18 [Rx] Magnesium Oxide 400 mg PO DAILY #30 tablet 04/18/18 [Rx] Meclizine [Antivert] 25 mg PO Q6H PRN #30 tablet 04/18/18 [Rx] Patient Handouts: Vertigo, [id number] Forms: ED Department Discharge Referrals: PCP,None [Primary Care Provider] - - Discharge Summary/Plan Comment DC Time >30 min.: Yes (Coordination of care ) Discharge Summary/Plan Comment: As above. Extensive precautions were given to the patient, who is in agreement with the treatment plan. See Patient Instructions for further treatment and plan. - General Info Date of Service: 04/18/18 Functional Status: Reports: Pain Controlled, Tolerating Diet, Ambulating, Urinating, New Symptoms (Labyrinthitis). Denies: Incentive Spirometry Numeric/FACES Score: 0 - Review of Systems General: Reports: Fever. Denies: Weakness, Fatigue, Malaise, Chills, Night Sweats, Appetite (Appetite good) HEENT: Reports: No Symptoms. Denies: Ear Pain, Eye Pain, Headaches, Sinus Congestion, Sore Throat, Rhinitis, Visual Changes Pulmonary: Reports: No Symptoms. Denies: Shortness of Breath, Pleuritic Chest Pain, Cough, Sputum, Wheezing Cardiovascular: Reports: No Symptoms. Denies: Chest Pain, Palpitations, Dyspnea on Exertion, Orthopnea, PND, Edema, Lightheadedness Gastrointestinal: Reports: No Symptoms. Denies: Abdominal Pain, Constipation, Decreased Appetite, Diarrhea, Difficulty Swallowing, Hematochezia, Melena, Nausea, Vomiting Genitourinary: Reports: No Symptoms. Denies: Dysuria, Frequency, Burning, Pain , Urgency, Incontinence, Hematuria, Retention, Flank Pain Musculoskeletal: Reports: No Symptoms. Denies: Neck Pain, Shoulder Pain, Arm Pain, Back Pain, Leg Pain Skin: Reports: No Symptoms. Denies: Diaphoresis, Bruising, Pruritis, Rash Neurological: Reports: Dizziness. Denies: Confusion, Headache, Numbness, Paresthesia, Seizure, Tingling, Tremors, Trouble Speaking, Difficulty Walking, Weakness, Gait Disturbance Psychiatric: Reports: Depression (Improved), Anxiety (Improved). Denies: No Symptoms, Confusion, Agitation, Cravings, Hallucinations, Suicidal Ideation, Homicidal Ideation - Patient Data Vitals - Most Recent: Last Vital Signs Temp 37.5 C 04/18/18 07:14 Pulse 66 04/18/18 07:14 Resp 16 04/18/18 04:00 BP 124/70 04/18/18 07:14 Pulse Ox 94 L 04/18/18 07:14 Orthostatic Blood Pressure [ 127/79 Standing] Orthostatic Blood Pressure [ 133/81 Sitting] Orthostatic Blood Pressure [ 135/72 Supine] Vital Signs - 24 hr 04/17/18 04/17/18 04/17/18 10:00 12:00 16:00 Temperature [ 36.7 C 36.1 C Oral] Temperature [ 37.6 C Temporal] Pulse, 85 75 64 Peripheral [ Left Pulse Oximetry] Respiratory 16 16 Rate Blood Pressure 117/58 L 121/74 113/57 L [Left Upper Arm ] O2 Sat by Pulse 92 L 97 96 Oximetry 04/17/18 04/18/18 04/18/18 20:00 00:00 04:00 Temperature [ 36.4 C 36.9 C 36.7 C Oral] Temperature [ Temporal] Pulse, 73 63 63 Peripheral [ Left Pulse Oximetry] Respiratory 16 16 16 Rate Blood Pressure 132/75 124/61 124/81 [Left Upper Arm ] O2 Sat by Pulse 95 95 95 Oximetry 04/18/18 07:14 Temperature [ 37.5 C Oral] Temperature [ Temporal] Pulse, 66 Peripheral [ Left Pulse Oximetry] Respiratory Rate Blood Pressure 124/70 [Left Upper Arm ] O2 Sat by Pulse 94 L Oximetry Weight - Most Recent: 112.945 kg I&O - Last 24 hours: Intake & Output 04/17/18 04/18/18 04/18/18 22:59 06:59 14:59 Intake Total 580 780 780 Output Total 1250 1050 200 Balance -670 -270 580 Imaging Impressions - Last 24 hrs: Heart monitor shows normal sinus rhythm in the 60s to 70s with no ectopy or arrhythmia CT of the head without contrast on 04/17/18 showed no evidence of acute infarction, hemorrhage, etc. Chest x-ray, portable, on 04/17/18 showed no evidence of cardiomegaly, CHF, pulmonary infiltrates, etc. Note EKG on 04/17/18 showed no evidence of acute ischemic changes Lab Results - Last 24 hrs: Laboratory Results - last 24 hr 04/17/18 04/18/18 04/18/18 Range/Units 03:35 07:08 07:08 WBC 7.9 (4.0-10.2) K/uL RBC 4.49 (4.33-5.41) M/uL Hgb 14.5 (13.1-16.8) g/dL Hct 41.5 (39.0-49.0) % MCV 92.4 (84.0-98.0) fL MCH 32.3 (28.2-33.3) pg MCHC 34.9 (31.7-36.0) g/dL RDW 12.2 (11.2-14.1) % Plt Count 215 (150-350) K/uL Neut % (Auto) 49.8 (45.0-80.0) % Lymph % (Auto) 34.1 (10.0-50.0) % [place] % (Auto) 11.5 (2.0-14.0) % Eos % (Auto) 4.2 (0.0-5.0) % Baso % (Auto) 0.4 (0.0-2.0) % Neut # (Auto) 3.92 (1.40-7.00) K/uL Lymph # (Auto) 2.69 (0.50-3.50) K/uL [place] # (Auto) 0.91 (0.00-1.00) K/uL Eos # (Auto) 0.33 (0.00-0.50) K/uL Baso # (Auto) 0.03 (0.00-0.20) K/uL Sodium 140 (136-145) mmol/L Potassium 3.5 (3.5-5.1) mmol/L Chloride 103 (98-107) mmol/L Carbon Dioxide 27.1 (21.0-32.0) mmol/L BUN 8 (7-18) mg/dL Creatinine 0.98 (0.51-1.17) mg/dL Est Cr Clr Drug Dosing 112.66 mL/min Estimated GFR (MDRD) > 60 mL/min Glucose 113 H (74-106) mg/dL Calcium 8.4 L (8.5-10.1) mg/dL Total Bilirubin 0.3 (0.2-1.0) mg/dL AST 23 (15-37) U/L ALT 60 (12-78) U/L Alkaline Phosphatase 77 (46-116) IU/L Total Protein 7.2 (6.4-8.2) g/dL Albumin 3.4 (3.4-5.0) g/dL Vitamin B12 304 (193-986) pg/mL Folate 3.8 L (8.6-58.9) ng/mL Prolactin 4.7 (2.6-13.1) ng/mL FREDRICK Results - Last 24 hrs: Microbiology 04/17/18 05:05 Aerobic Blood Culture - Preliminary Blood - Venous - Lab Draw NO GROWTH AFTER 1 DAY Anaerobic Blood Culture - Preliminary NO GROWTH AFTER 1 DAY 05/29/18 04:45 Aerobic Blood Culture - Preliminary Blood - Venous NO GROWTH AFTER 1 DAY Anaerobic Blood Culture - Preliminary NO GROWTH AFTER 1 DAY Urine culture and sensitivity still pending Med Orders - Current: Current Medications Acetaminophen (Tylenol) 650 mg PO Q4H PRN PRN Reason: Pain (Mild 1-3)/fever Last Admin: 04/18/18 07:13 Dose: 650 mg Bupropion HCl (Wellbutrin Xl) 150 mg PO DAILY [facility] Last Admin: 04/18/18 07:12 Dose: 150 mg Fluticasone Propionate (Flonase) 0 gm NASBOTH DAILY [facility] Last Admin: 04/18/18 07:11 Dose: 1 spr Ceftriaxone Sodium 1 gm/ (Sodium Chloride) 100 mls @ 200 mls/hr IV Q12H [facility] Last Admin: 04/18/18 04:10 Dose: 200 mls/hr Magnesium Oxide (Magnesium Oxide) 400 mg PO DAILY [facility] Last Admin: 04/18/18 07:12 Dose: 400 mg Meclizine HCl (Antivert) 25 mg PO Q6H PRN PRN Reason: Dizziness Methylprednisolone Sodium Succinate (Solu-Medrol) 125 mg IVPUSH ONETIME ONE Stop: 04/18/18 09:15 Ondansetron HCl (Zofran) 4 mg IVPUSH Q6H PRN PRN Reason: Nausea/Vomiting Sertraline HCl (Zoloft) 150 mg PO DAILY [facility] Last Admin: 04/18/18 07:12 Dose: 150 mg Sodium Chloride (Saline Flush) 10 ml FLUSH ASDIRECTED PRN PRN Reason: Keep Vein Open Last Admin: 04/18/18 04:10 Dose: 10 ml Sodium Chloride (Saline Flush) 10 ml FLUSH Q12H PRN PRN Reason: Keep Vein Open Last Admin: 04/17/18 17:15 Dose: 10 ml Temazepam (Restoril) 15 mg PO BEDTIME PRN PRN Reason: Insomnia Discontinued Medications Famotidine (Pepcid) 40 mg IVPUSH ONETIME ONE Stop: 04/17/18 03:35 Last Admin: 04/17/18 03:49 Dose: 40 mg Lactated Ringer's (Ringers, Lactated) 1,000 mls @ 999 mls/hr IV .BOLUS ONE Stop: 04/17/18 05:05 Last Admin: 04/17/18 04:08 Dose: 999 mls/hr Ondansetron HCl (Zofran) 4 mg IVPUSH ONETIME ONE Stop: 04/17/18 03:43 Last Admin: 04/17/18 03:50 Dose: 4 mg - Exam Quality Assessment: Reports: Supplemental Oxygen, DVT Prophylaxis. Denies: Central Line/PICC, Urine Catheter, Skin Breakdown, Restraints General: Reports: Alert, Oriented, Cooperative, No Acute Distress. Denies: Sedated, Lethargic HEENT: Reports: Pupils Equal, Pupils Reactive, EOMI, Mucous Membr. Moist/[place], Other (Mild vertigo with head movement but no nystagmus) Neck: Reports: Supple, Trachea Midline, No JVD, No Thyromegaly, +2 Carotid Pulse wo Bruit. Denies: Lymphadenopathy Lungs: Reports: Clear to Auscultation, Normal Respiratory Effort. Denies: Rub Cardiovascular: Reports: Regular Rate, Regular Rhythm, No Murmurs. Denies: Gallops, Rubs GI/Abdominal Exam: Normal Bowel Sounds, Soft, Non-Tender, No Organomegaly, No Distention, No Abnormal Bruit, No Mass, Other (Obese). No: Guarding (Male) Exam: Deferred Rectal (Males) Exam: Deferred Back Exam: Reports: Normal Inspection, Full Range of Motion. Denies: CVA Tenderness (L), CVA Tenderness (R), Muscle Spasm Extremities: Normal Inspection, Normal Range of Motion, Non-Tender, No Pedal Edema, Normal Capillary Refill. No: Jenn's Sign Skin: Reports: Warm, Dry, Intact. Denies: Ecchymosis Neurological: Reports: No New Focal Deficit, Other (No clinical orthostasis) Psy/Mental Status: Reports: Alert, Anxious (Mild to moderate), Depressed (Mild to moderate although improved). Denies: Agitated, Suicidal Ideation, Homicidal Ideation, Hallucinations, Withdrawal Symptoms
--- NOTE | 2018-04-18 23:51 | PCM.SN ---
- Free Text/Narrative Note: Correction in discharge summary from 04/18/18. Note that patient was given "Solu- Medrol"for his vertigo today.
== END 2018-04-18 11:20 | disposition home or self-care (01) ==
LOC: LL.ED 03:13 → UNDOADMOB 04:57 → LL.MS 04:57
PROVIDERS: ADMIT Family Medicine; ATTEND Family Medicine
DX: R41.0 Disorientation, unspecified (principal); H83.09 Labyrinthitis, unspecified ear; E83.42 Hypomagnesemia; F41.8 Other specified anxiety disorders; K21.9 Gastro-esophageal reflux disease without esophagitis; M15.0 Primary generalized (osteo)arthritis; E53.8 Deficiency of other specified B group vitamins; J30.9 Allergic rhinitis, unspecified; K59.09 Other constipation; G43.909 Migraine, unspecified, not intractable, without status migrainosus; E66.9 Obesity, unspecified; F17.210 Nicotine dependence, cigarettes, uncomplicated; Z79.899 Other long term (current) drug therapy; Z79.51 Long term (current) use of inhaled steroids; Z68.30 Body mass index [BMI] 30.0-30.9, adult
CPT/HCPCS: 36415; 70450; 71045; 80053; 80305; 81001; 82550; 82553; 82607; 82746; 83605; 83735; 83880; 84146; 84443; 84484; 84550; 85025; 85379; 85610; 85730; 87040; 87086; 93005; 96361; 96365; 96366; 96374; 96375; 99285; A9270-GY; G0378; G0480; J0696; J2405; J2930; J7050; J7120; S0028